=== PATIENT | female | born 1970 | race Caucasian/White ===

== ENCOUNTER → 2016-08-14 | Outpatient (CLI) | payer BC ==
--- NOTE | 2016-08-14 09:27 | KCIC ---
PROCEDURE MRI left shoulder without contrast dated 08/14/2016. HISTORY Pain after fall 1 week ago. TECHNIQUE Routine multiplanar multisequence MR imaging left shoulder performed. COMPARISON None. FINDINGS Focal edema at the greater tuberosity with small hypointense fracture lines anteriorly. Fracture lines extend nearly to the level of the bicipital groove. Marrow signal is otherwise homogeneous. Intermediate T2 signal within the supraspinatus and infra spinatus portions of the rotator cuff. No full thickness tear. There is mild articular and bursal surface fraying of the central supraspinatus critical zone. Subscapularis is intact. Moderate hypertrophic change of the acromioclavicular joint. Mild undersurface spurring. Acromion type 1 morphology. Small amount of subacromial/subdeltoid bursal fluid. Long head biceps tendon is intact. There is mild increased signal in the tendon substance. Extra-articular portion courses within the bicipital groove. There is blunted morphology of the posterior labrum with small linear focus of increased signal but extends along the labral cartilaginous interface. Mild hypertrophic change of the glenohumeral joint. No joint effusion or loose body. No full thickness glenoid cartilage defect. Suprascapular and spinoglenoid notches are clear. No significant muscle edema or muscle atrophy. IMPRESSION - Mildly comminuted fracture of the greater tuberosity, not significantly displaced. - Mild proximal biceps tendinosis. - Moderate AC joint arthropathy with undersurface spurring. Trace amount of subacromial/subdeltoid bursal fluid. - Mild degenerative change of the glenohumeral joint. Suspected early degenerative tearing of the posterior labrum. Electronically signed by: Kevin Mayfield (Aug 14, 2016 09:26:23)
== END | disposition home or self-care (01) ==
LOC: KCIC MRI 08:28
PROVIDERS: ATTEND Physician Assistant Medical
DX: M25.512 Pain in left shoulder (principal)
CPT/HCPCS: 73221

== ENCOUNTER 2020-01-25 10:55 | Emergency (ER) | payer BC ==
[~2020-01-25] VITALS: Ht 162.6 cm; Wt 77.2 kg
[2020-01-25 11:26] VITALS: BP 138/62
[2020-01-25] MEDS ORDERED: TETRACAINE 0.5% OPHTH SOLUTION 4ML BOTTLE. OU ONE (11:45)
--- NOTE | 2020-01-25 13:23 | PHYS DOC ---
Past Medical History Past Medical History: No Pertinent History Past Surgical History: Cholecystectomy Smoking Status: Never Smoker Alcohol Use: Occasionally General Adult EDM: Chief Complaint: CHEMICAL EXPOSURE HPI: HPI: Patient is a 49 year old female, accompanied by her , who presents to the emergency department with complaints of a chemical exposure to both her eyes at approximately 810 this morning. Patient states that she accidentally splash ed polyurethane into both of her eyes. She reports that her right eye has been a little bit blurry with tearing since the incident. She denies any loss of vision. Patient reports that she flushed her eyes out with water at home for 20 to 30 minutes before coming to the emergency room. She reports that she called poison control and they advised her to go to the emergency room. She currently complains of pain in her right eye that she rates a 4 out of 10 on the pain scale describes as a burning sensation, she denies any alleviating or exacerbating factors. Review of Systems: Review of Systems: Constitutional: Denies fever or chills. [] Eyes: Denies change in visual acuity; see HPI. [] Neurologic: Denies headache, focal weakness or sensory changes. [] Complete ROS is negative unless otherwise stated in the HPI. Heart Score: Risk Factors: Risk Factors: DM, Current or recent (<one month) smoker, HTN, HLP, family history of CAD, obesity. Risk Scores: Score 0 - 3: 2.5% MACE over next 6 weeks - Discharge Home Score 4 - 6: 20.3% MACE over next 6 weeks - Admit for Clinical Observation Score 7 - 10: 72.7% MACE over next 6 weeks - Early Invasive Strategies Current Medications: Current Medications Medications (Trade) Dose Ordered Sig/[facility] Start Time Stop Time Status Last Admin Dose Admin Tetracaine HCl (Tetracaine) 1 drop 1X ONCE 01/25/20 11:45 01/25/20 11:46 DC 01/25/20 11:56 1 DROP Allergies: Allergies: Allergies Coded Allergies Type Severity Reaction Last Updated Verified codeine Allergy Intermediate rash 01/25/20 Yes Physical Exam: PE: Constitutional: Well developed, well nourished, no acute distress, non-toxic appearance. [] HENT: Normocephalic, atraumatic, bilateral external ears normal, oropharynx moist, no oral exudates, nose normal. [] Eyes: PERRLA, EOMI, conjunctiva normal, no discharge, litmus paper testing of bilateral eyes reveals a pH of 7.0. [] Neck: Normal range of motion, no stridor. [] Cardiovascular:Heart rate regular rhythm, no murmur [] Lungs & Thorax: Respirations even and unlabored, no retractions, no respiratory distress Skin: Warm, dry, no erythema, no rash. [] Extremities: No cyanosis, ROM intact, no edema. [] Neurologic: Alert and oriented X 3, no focal deficits noted. [] Psychologic: Affect normal, judgement normal, mood normal. [] Current Patient Data: Vital Signs: Vital Signs Date Time Temp Pulse Resp B/P (MAP) Pulse Ox O2 Delivery O2 Flow Rate FiO2 01/25/20 11:26 97.8 100 18 138/62 (87) 99 Room Air 97.8 EKG: EKG: [] Radiology/Procedures: Radiology/Procedures: [] Course & Med Decision Making: Course & Med Decision Making Pertinent Labs and Imaging studies reviewed. (See chart for details) [] Dragon Disclaimer: Dragon Disclaimer: This electronic medical record was generated, in whole or in part, using a voice recognition dictation system. Departure Departure Impression: Primary Impression: Chemical exposure of eye Disposition: 01 HOME, SELF-CARE Condition: STABLE Referrals: RADHA CARMONA (PCP) Patient Instructions: Conjunctivitis, Chemical, [id number] Additional Instructions: Follow up with your eye doctor in 2-3 days. Return to the ER if symptoms worsen. Justicifation of Admission Dx: Justifications for Admission: Justification of Admission Dx: N/A [employer] REPA[employer] Jan 25, 2020 13:23
== END 2020-01-25 13:37 | disposition home or self-care (01) ==
LOC: ER 10:55
DX: H57.11 Ocular pain, right eye (principal); R20.8 Other disturbances of skin sensation; Z77.098 Contact with and (suspected) exposure to other hazardous, chiefly nonmedicinal, chemicals; Z88.5 Allergy status to narcotic agent; Z90.49 Acquired absence of other specified parts of digestive tract
CPT/HCPCS: 99282